=== PATIENT | male | born 1990 | race Two or more races ===

== ENCOUNTER 2018-01-21 19:19 | Emergency (ER) | payer OTHER ==
--- NOTE | 2018-01-21 19:41 | EDPHY ---
H & P Stated Complaint: lump om testicles Time Seen by Provider: 01/21/18 19:33 HPI/ROS: HPI: This is a 28-year-old male who presents with Chief Complaint: Lump on testicles x3 months Location: Bilateral testicle Quality: Lump Duration: 3 months Signs and Symptoms: no fever, no nausea, no vomiting, no hematemesis, no blood in stool, no abdominal bloating, no diarrhea, no back pain, no urinary symptoms , no testicular/groin pain, no indigestion, no chest pain, no shortness of breath Timing: Acute, worsening Severity: Mild Context: Patient is , in a monogamous relationship, presents with complaints of 3 month history of bilateral testicle"lumps" that have increased in size by 25% over the last 1 week. Patient denies any penile discharge, testicular swelling, burning with urination, urinary hesitancy. He denies any concern for STDs. He has not had any heavy lifting and denies any bulge in his groin area. Modifying Factors: None Comment: ROS: A comprehensive 10 system review of systems is otherwise negative aside from elements mentioned in the history of present illness. MEDICAL/SURGICAL/SOCIAL HISTORY: Medical history: Hypothyroidism, hyperlipidemia Surgical history: Denies Social history: with children. Nonsmoker. Family history noncontributory. CONSTITUTIONAL: Nontoxic-appearing adult male, slightly anxious, awake and alert, no obvious distress HEENT: Atraumatic and normocephalic, PERRL, EOMI. Nares patent; no rhinorrhea; no nasal mucosal edema. Tympanic membranes clear. Oropharynx clear, no exudate and moist pink mucosa. Airway patent. No lymphadenopathy. No meningismus. Cardiovascular: Normal S1/S2, regular rate, regular rhythm, without murmur rub or gallop. PULMONARY/CHEST: Symmetrical and nontender. Clear to auscultation bilaterally. Good air movement. No accessory muscle usage. ABDOMEN: Soft, nondistended, nontender, no rebound, no guarding, no peritoneal signs, no masses or organomegaly. No CVAT. Male : uncircumcised penis, bilateral descended testes, no testicular swelling , palpable epididymis bilaterally with mild tenderness with palpation; no penile discharge, no lesions, negative Prehn's sign. EXTREMITIES: 2/2 pulses, strength 5/5, no deformities, no clubbing, no cyanosis or edema. NEUROLOGICAL: no focal neuro deficits. GCS 15. SKIN: Warm and dry, no erythema. no rash. Good capillary refill. Source: Patient, Family () Exam Limitations: Language barrier (Vietnamese) - Personal History Current Tetanus Diphtheria and Acellular Pertussis (TDAP): Yes - Medical/Surgical History Hx Asthma: No Hx Chronic Respiratory Disease: No Hx Diabetes: No Hx Cardiac Disease: No Hx Renal Disease: No Hx Cirrhosis: No Hx Alcoholism: No Hx HIV/AIDS: No Hx Splenectomy or Spleen Trauma: No Other PMH: HYPOTHYROID, high cholesterol - Social History Smoking Status: Never smoked Constitutional: Initial Vital Signs Temperature (C) 36.5 C 01/21/18 19:27 Heart Rate 72 01/21/18 19:27 Respiratory Rate 18 01/21/18 19:27 Blood Pressure 144/98 H 01/21/18 19:27 O2 Sat (%) 96 01/21/18 19:27 O2 Delivery Mode Room Air Allergies/Adverse Reactions: No Known Allergies Allergy (Unverified 07/03/14 22:02) Home Medications: Medication Instructions Recorded LEVOTHYROXINE SODIUM 07/03/14 Medical Decision Making - Diagnostics Imaging Results: Imaging Impressions Testicular Ultrasound 01/21/18 19:33 Impression: Small bilateral epididymal head cysts; otherwise negative scrotal sonography. Results called to Radha Marcelino PA-C at 8:50 PM ED Course/Re-evaluation: Vital signs reviewed and stable upon arrival. No systemic signs. Testicular ultrasound, urinalysis, urine GC ordered 2048: Called by radiologist, Dr. Brewer, who advised that testicular ultrasound shows bilateral small epididymal cyst but no signs of epididymitis, orchitis, testicular torsion. Both testicles have good blood flow. Urinalysis is negative. Will not prophylactically treat for GC as low yield. Reassurance provided to the patient. Urology follow-up as needed. This patient was seen under the supervision of my secondary supervising physician. I evaluated care for this patient independently. Discussed this patient with Dr. Lobato who did not see the patient. Differential Diagnosis: Differential diagnosis includes but is not limited to epididymitis, orchitis, gonorrhea infection, chlamydia infection, urinary tract infection. - Data Points Laboratory Results: 01/21/18 01/21/18 21:00 21:00 Urine Color YELLOW Urine Appearance CLEAR Urine pH 6.0 (5.0-7.5) Ur Specific [place] 1.016 (1.002-1.030) Urine Protein NEGATIVE (NEGATIVE) Urine Ketones NEGATIVE (NEGATIVE) Urine Blood NEGATIVE (NEGATIVE) Urine Nitrate NEGATIVE (NEGATIVE) Urine Bilirubin NEGATIVE (NEGATIVE) Urine Urobilinogen NEGATIVE EU EU (0.2-1.0) Ur Leukocyte Esterase NEGATIVE (NEGATIVE) Urine Glucose NEGATIVE (NEGATIVE) C.trachomatis RNA (TMA) Pending N.gonorrhoeae RNA (TMA) Pending Departure - Departure Disposition: Home, Routine, Self-Care Clinical Impression: Cyst of epididymis determined by ultrasound Condition: Good Instructions: Cystocele (ED) Additional Instructions: Return at once for any worsening symptoms or concerns. Follow-up with Urology as needed. Referrals: Pedro Pablo Torres MD [Medical Doctor] - As per Instructions
[2018-01-21 21:46] VITALS: BP 139/89
[2018-01-22 11:54] LABS: GC AMPLIFICATION GENPROBE NEGATIVE (NEGATIVE)
== END 2018-01-21 21:46 | disposition home or self-care (01) ==
DX: N50.3 Cyst of epididymis (principal); E03.9 Hypothyroidism, unspecified; E78.00 Pure hypercholesterolemia, unspecified